=== PATIENT | female | born 1945 | race American Indian/Alaskan Native ===

== ENCOUNTER 2018-08-25 22:48 | Inpatient (IN) | payer MEDICAID, MEDICARE ==
[2018-08-25 23:57] LABS: Basophils # (Auto) 0.1 K/mm3 (0.0-0.1); Basophils % (Auto) 0.5 % (0.0-1.8); Eosinophils % (Auto) 0.2 % (0.0-4.3); Hematocrit 36.5 % (30.3-42.9); Hemoglobin 12.3 gm/dl (10.1-14.3); Lymphocytes # (Auto) 3.2 K/mm3 (1.2-5.4); Lymphocytes % (Auto) 27.3 % (13.4-35.0); Mean Corpuscular HGB Conc 34 % (30-34); Mean Corpuscular Volume 88 fl (79-97); Monocytes % (Auto) 8.5 % (0.0-7.3); Platelet Count 296 K/mm3 (140-440); Red Blood Count 4.16 M/mm3 (3.65-5.03); Red Cell Distribution Width 16.2 % (13.2-15.2)
[2018-08-26 00:13] LABS: Alanine Aminotransferase 20 units/L (7-56); BUN/Creatinine Ratio 10; Blood Urea Nitrogen 6 mg/dL (7-17); Calcium 9.2 mg/dL (8.4-10.2); Hemolysis Index 9
--- NOTE | 2018-08-26 00:21 | XRay Report ---
PROCEDURE: XR CHEST 1V AP TECHNIQUE: Chest radiograph single view. HISTORY: cough COMPARISONS: None . FINDINGS: Heart: Normal. Mediastinum/Vessels: Normal. Lungs/Pleural space: Normal. Bony thorax: No acute osseous abnormality. Life support devices: None. IMPRESSION: No acute cardiopulmonary abnormality. This document is electronically signed by Rian Dumont MD., August 26 2018 12:19:42 AM ET
[2018-08-26 00:26] LABS: INR 1.31 (0.87-1.13)
[2018-08-26 00:27] LABS: Partial Thromboplastin Time 31.4 Sec. (24.2-36.6)
--- NOTE | 2018-08-26 00:54 | Cat Scan Report ---
PROCEDURE: CT HEAD/BRAIN WO CON TECHNIQUE: Computerized tomography of the head was performed without contrast material. CT DOSE LENGTH PRODUCT: 1038.3 mGycm HISTORY: convulsions COMPARISONS: None . FINDINGS: Skull and scalp: Normal . Paranasal sinuses: Normal . Ventricles and subarachnoid spaces: Normal . Cerebrum: No evidence of hemorrhage, acute infarction or mass. Mild atrophy and periventricular deep white matter change. Cerebellum and brainstem: No evidence of hemorrhage, acute infarction or mass . Vasculature: Normal . Other: None . ASPECTS: 10 IMPRESSION: There is no evidence of an acute intracranial process. There is mild atrophy and periven tricular deep white matter change . This document is electronically signed by Mona Mejia DO., August 26 2018 12:52:31 AM ET
--- NOTE | 2018-08-26 01:41 | Emergency Department Report ---
ED General Adult HPI - General Chief complaint: Neuro Symptoms/Deficit Stated complaint: MUSCLE SPASMS Time Seen by Provider: 08/25/18 23:10 Source: EMS Mode of arrival: Wheelchair Limitations: Physical Limitation - History of Present Illness Initial comments: Patient presents to the emergency department from a local senior care for stroke and worsening of right sided weakness. The patient has a previous history of CVA in the senior care states that she was having difficulty moving her right side more normal and slurred speech. Onset of symptoms are unknown. The senior care also states that the patient is twitching more than normal -: Sudden Consistency: constant Improves with: none Worsens with: none Treatments Prior to Arrival: none - Related Data Allergies Allergy/AdvReac Type Severity Reaction Status Date / Time Penicillins Allergy Unknown Verified 08/25/18 22:57 ED Review of Systems ROS: Stated complaint: MUSCLE SPASMS Other details as noted in HPI Comment: not able to assess due to the patient's condition ED Past Medical Hx - Past Medical History Previous Medical History?: Yes Hx CVA: Yes (right deficit) Hx Diabetes: Yes Hx GERD: Yes Hx Seizures: Yes Hx Psychiatric Treatment: Yes (Schizoaffective disorder) Hx Dementia: Yes Additional medical history: dysphagia, Abnormal giat, Cerebral Embolism, Afib, hyperlipidemia, osteoarthritis of knee - Surgical History Past Surgical History?: No Additional Surgical History: Elbow repair over 30 years. mass removed from back of the neck early - Social History Smoking Status: Former Smoker ED Physical Exam - General Limitations: Physical Limitation General appearance: alert, in no apparent distress, other (patient is having involuntary tremors of the right side) - Head Head exam: Present: atraumatic, normocephalic - Eye Eye exam: Present: normal appearance, PERRL, EOMI - ENT ENT exam: Present: mucous membranes moist - Neck Neck exam: Present: normal inspection - Respiratory Respiratory exam: Present: normal lung sounds bilaterally. Absent: respiratory distress, wheezes, rales, rhonchi - Cardiovascular Cardiovascular Exam: Present: regular rate, normal rhythm. Absent: systolic murmur, diastolic murmur, rubs, gallop - GI/Abdominal GI/Abdominal exam: Present: soft, normal bowel sounds. 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 Absent: motor sensory deficit - Psychiatric Psychiatric exam: Present: normal affect, normal mood - Skin Skin exam: Present: warm, dry, intact, normal color. Absent: rash ED Course Vital Signs 08/25/18 08/25/18 22:59 23:31 Temperature 99.0 F Pulse Rate 134 H Respiratory 32 H Rate Blood Pressure 179/90 [Left] O2 Sat by Pulse 99 Oximetry ED Medical Decision Making - Lab Data Result diagrams: 08/25/18 23:42 08/25/18 23:42 Lab Results 08/25/18 08/25/18 08/25/18 Range/Units 23:42 23:42 23:42 WBC 11.9 H (4.5-11.0) K/mm3 RBC 4.16 (3.65-5.03) M/mm3 Hgb 12.3 (10.1-14.3) gm/dl Hct 36.5 (30.3-42.9) % MCV 88 (79-97) fl MCH 30 (28-32) pg MCHC 34 (30-34) % RDW 16.2 H (13.2-15.2) % Plt Count 296 (140-440) K/mm3 Lymph % (Auto) 27.3 (13.4-35.0) % [place] % (Auto) 8.5 H (0.0-7.3) % Eos % (Auto) 0.2 (0.0-4.3) % Baso % (Auto) 0.5 (0.0-1.8) % Lymph # 3.2 (1.2-5.4) K/mm3 [place] # 1.0 H (0.0-0.8) K/mm3 Eos # 0.0 (0.0-0.4) K/mm3 Baso # 0.1 (0.0-0.1) K/mm3 Seg Neutrophils % 63.5 (40.0-70.0) % Seg Neutrophils # 7.5 (1.8-7.7) K/mm3 PT 17.1 H (12.2-14.9) Sec. INR 1.31 H (0.87-1.13) APTT 31.4 (24.2-36.6) Sec. Sodium 141 (137-145) mmol/L Potassium 3.8 (3.6-5.0) mmol/L Chloride 103.7 (98-107) mmol/L Carbon Dioxide 22 (22-30) mmol/L Anion Gap 19 mmol/L BUN 6 L (7-17) mg/dL Creatinine 0.6 L (0.7-1.2) mg/dL Estimated GFR > 60 ml/min BUN/Creatinine Ratio 10 % Glucose 158 H (65-100) mg/dL Calcium 9.2 (8.4-10.2) mg/dL Total Bilirubin 0.30 (0.1-1.2) mg/dL AST 17 (5-40) units/L ALT 20 (7-56) units/L Alkaline Phosphatase 58 (35-129) units/L Total Protein 7.5 (6.3-8.2) g/dL Albumin 3.0 L (3.9-5) g/dL Albumin/Globulin Ratio 0.7 % - Radiology Data Radiology results: report reviewed [facility] [address] [place] [address] Cat Scan Report Signed Patient: RENUKA OBANDO MR#: [id number] : 1945 Acct:[id number] Age/Sex: 73 / F ADM Date: 08/25/18 Loc: ED Attending Dr: Ordering Physician: GABBY CHEEMA MD Date of Service: 08/25/18 Procedure(s): CT head/brain wo con Accession Number(s): [id number] cc: GABBY CHEEMA MD PROCEDURE: CT HEAD/BRAIN WO CON TECHNIQUE: Computerized tomography of the head was performed without contrast material. CT DOSE LENGTH PRODUCT: 1038.3 mGycm HISTORY: convulsions COMPARISONS: None . FINDINGS: Skull and scalp: Normal . Paranasal sinuses: Normal . Ventricles and subarachnoid spaces: Normal . Cerebrum: No evidence of hemorrhage, acute infarction or mass. Mild atrophy and periventricular deep white matter change. Cerebellum and brainstem: No evidence of hemorrhage, acute infarction or mass . Vasculature: Normal . Other: None . ASPECTS: 10 IMPRESSION: There is no evidence of an acute intracranial process. There is mild atrophy and periventricular deep white matter change . This document is electronically signed by Mona Mejia DO., August 26 2018 12:52:31 AM ET Transcribed By: [facility] Dictated By: MONA MEJIA MD Electronically Authenticated By: MONA MEJIA MD Signed Date/Time: 08/26/18 0054 DD/ TD/TT: 08/26/186 [facility] [address] [place] [address] XRay Report Signed Patient: RENUKA OBANDO MR#: [id number] : 1945 Acct:[id number] Age/Sex: 73 / F ADM Date: 08/25/18 Loc: ED Attending Dr: Ordering Physician: GABBY CHEEMA MD Date of Service: 08/25/18 Procedure(s): XR chest 1V ap Accession Number(s): [id number] cc: GABBY CHEEMA MD Fluoro Time In Minutes: PROCEDURE: XR CHEST 1V AP TECHNIQUE: Chest radiograph single view. HISTORY: cough COMPARISONS: None . FINDINGS: Heart: Normal. Mediastinum/Vessels: Normal. Lungs/Pleural space: Normal. Bony thorax: No acute osseous abnormality. Life support devices: None. IMPRESSION: No acute cardiopulmonary abnormality. This document is electronically signed by Rian Eduardo MD., August 26 2018 12:19:42 AM ET Transcribed By: [place] Dictated By: RIAN EDUARDO MD Electronically Authenticated By: RIAN EDUARDO MD Signed Date/Time: 08/26/18 0021 DD/ 0005 TD/TT: 08/26/18 0005 - Medical Decision Making Results discussed with patient Tremors greatly improved The patient's aphasia improved as well and her right-sided weakness also improve Critical care attestation.: If time is entered above; I have spent that time in minutes in the direct care of this critically ill patient, excluding procedure time. ED Disposition Clinical Impression: Aphasia Disposition: DC-09 OP ADMIT IP TO THIS HOSP Is pt being admited?: Yes Does the pt Need Aspirin: No Condition: Fair Referrals: PRIMARY CARE, [Primary Care Provider] - 3-5 Days - Assessment Assessment Interval: Baseline - Level of Consciousness 1a. Level of Consciousness: alert/keenly responsive - LOC Questions 1b. LOC Questions: dysarthric/intubated - LOC Command 1c. LOC Commands: performs tasks correctly - Best Gaze 2. Best Gaze: normal - Visual 3. Visual: no visual loss - Facial Palsy 4. Facial Palsy: partial paralysis - Motor Arm 5a. Motor Arm Left: no drift 5b. Motor Arm Right: some gravity effort - Motor Leg 6a. Motor Leg Left: no drift 6b. Motor Leg Right: no drift - Limb Ataxia 7. Limb Ataxia: absent - Sensory 8. Sensory: normal - Best Language 9. Best Language: mild/moderate aphasia - Dysarthria 10. Dysarthria: mild/moderate dysarthria - Extinction and Inattention 11. Extinction/Inattention: no abnormality - Scoring Total Score: 7 Stroke Severity: Moderate Stroke
[2018-08-26] MEDS ORDERED: BABY ASPIRIN PO ONE (01:51)
[2018-08-26] MEDS ORDERED: SODIUM CHLORIDE FLUSH SYRINGE 10 ML IV PRN (02:34)
[2018-08-26] MEDS ORDERED: ZOFRAN IV PRN (02:34)
--- NOTE | 2018-08-26 02:47 | History and Physical Report ---
History of Present Illness Date of examination: 08/26/18 History of present illness: 73-year-old woman with a history of CVA complicated by dysphagia, right-sided weakness, diabetes, GERD, seizure, A. fib, hyperlipidemia, schizoaffective disorder was sent from the detention to the emergency room for evaluation of worsening right sided weakness and slurred speech. Per the emergency room physician, her speech improved in the emergency room Review of systems Constitutional: no weight loss, chills, fever Ears, eyes, nose, mouth and throat: no nasal congestion, no nasal discharge, no sinus pressure, no vision change, no red eye. Neck: No neck pain or rigidity. Cardiovascular: no palpitations, chest pain Respiratory: no cough, shortness of breath Gastrointestinal: no hematochezia, abdominal pain Genitourinary : no frequency , no hematuria Musculoskeletal: no joint swelling or muscle ache Integumentary: no rash, no pruritis Neurological: no parathesias, + focal weakness Endocrine: no cold or heat intolerance, no polyuria or polydipsia Hematologic/Lymphatic: no easy bruising, no easy bleeding, no gland swelling Allergic/Immunologic: no urticaria, no angioedema. PAST MEDICAL HISTORY:CVA complicated by dysphagia, right-sided weakness, diabetes, GERD, seizure, A. fib, hyperlipidemia PAST SURGICAL HISTORY: elbow, mass removed from the back of the neck SOCIAL HISTORY: Denies alcohol, drugs, tobacco FAMILY HISTORY: Hypertension Medications and Allergies Allergies Allergy/AdvReac Type Severity Reaction Status Date / Time Penicillins Allergy Unknown Verified 08/25/18 22:57 Exam - Physical Exam Narrative exam: General Apperance: The patient lying in bed, breathing comfortable HEENT: Normocephalic, atraumatic. Pupils equally round and reactive to light, EOMI, no sclericterus or JVD or thyromegaly or nodule. , no carotid bruit, muco us membranes moist, no exudate or erythema Heart: S1-S2, regular is rhythm Lungs: Clear to auscultation bilaterally, breathing comfortable Abdomen: Positive bowel sounds, soft, nontender, nondistended, no organomegaly Extremities: No edema cyanosis clubbing Skin: no rash, nodule, warm and dry Neuro: cranial nerves 2-12 intact, speech is fluent, right upper and lower extremity 3/ 5 - Constitutional Vitals: Temp Pulse Resp BP Pulse Ox 99.0 F 134 H 32 H 179/90 99 08/25/18 23:31 08/25/18 22:59 08/25/18 22:59 08/25/18 22:59 08/25/18 22:59 Results - Labs CBC & Chem 7: 08/25/18 23:42 08/25/18 23:42 Labs: Abnormal lab results 08/25/18 08/25/18 08/25/18 Range/Units 23:42 23:42 23:42 WBC 11.9 H (4.5-11.0) K/mm3 RDW 16.2 H (13.2-15.2) % [place] % (Auto) 8.5 H (0.0-7.3) % [place] # 1.0 H (0.0-0.8) K/mm3 PT 17.1 H (12.2-14.9) Sec. INR 1.31 H (0.87-1.13) BUN 6 L (7-17) mg/dL Creatinine 0.6 L (0.7-1.2) mg/dL Glucose 158 H (65-100) mg/dL Albumin 3.0 L (3.9-5) g/dL - Imaging and Cardiology Chest x-ray: report reviewed CT Scan - head: report reviewed Assessment and Plan Assessment Acute CVA diabetes GERD seizure A. fib hyperlipidemia chizoaffective disorder Plan Admit to medicine Obtain MRI, MRA of the head and neck, echo [facility]ary C[employer] Feeder neurology, speech, OT, PT Do neuro checks, swallows screen Start Plavix, statin, DVT prophylaxis
[2018-08-26 04:50] LABS: Amorphous Crystals,Urine 2+; Bacteria,Urine 1+ /HPF (Negative); Bilirubin,Urine NEG (Negative); Blood,Urine NEG (Negative); Color,Urine Yellow (Yellow); Protein,Urine <15 mg/dL mg/dL (Negative); Urobilinogen,Urine < 2.0 mg/dL (<2.0)
[2018-08-26] MEDS ORDERED: LOVENOX SUB-Q SCH (10:00)
--- NOTE | 2018-08-26 11:32 | Magnetic Resonance Report ---
MRA HEAD WITHOUT CONTRAST HISTORY: Stroke. [id number] imaging with MIP reformations of the teller of [place] is submitted. The arteries appear widely patent and free of hemodynamically significant stenosis, aneurysm or dissection. IMPRESSION: Unremarkable MRA head.
--- NOTE | 2018-08-26 11:32 | Magnetic Resonance Report ---
MRI OF THE BRAIN WITHOUT CONTRAST: HISTORY: Stroke PROCEDURE: Multiplanar, multisequence MR imaging of the brain without IV contrast was performed. FINDINGS: Compared to the CT head dated 08/26/18. There is mild motion artifact on all sequences. Moderate volume loss is evident. Otherwise, the brain parenchyma signal intensity at the leos-white interface is within normal limits on all sequences. No evidence for acute ischemia, hemorrhage or mass. No chronic infarct or extra-axial fluid collection. The midline structures are central. The basal cisterns are patent. Normal ventricular size. The orbital cavities and sella turcica demonstrate no abnormality. The visualized paranasal sinuses and mastoid air cells are well aerated. IMPRESSION: Volume loss. No acute intracranial process is identified.
--- NOTE | 2018-08-26 12:58 | Event Note ---
Date: 08/26/18 Patient was admitted earlier this morning closer management of suspected CVA, patient didn't know why she is here. The patient has chronic right-sided weakness, she has twitching of her right leg. CVA workup is in progress.
--- NOTE | 2018-08-26 13:02 | Progress Note ---
Subjective Date of service: 08/26/18 Interval history: have reviewed the MRA AND mra BOTH NORMAL PLAN CEHCK echo FOR TIA WORK UP WILL DETAIL NOTE AT THAT POINT THANKS Objective - Vital Sign Vital Signs - 12hr 08/26/18 08/26/18 08/26/18 01:15 01:46 02:15 Temperature Pulse Rate Respiratory Rate Blood Pressure 162/90 135/75 114/68 Blood Pressure [Left] O2 Sat by Pulse 97 95 94 Oximetry 08/26/18 08/26/18 08/26/18 02:45 03:15 03:30 Temperature Pulse Rate 94 H Respiratory 22 Rate Blood Pressure 126/67 127/67 147/81 Blood Pressure [Left] O2 Sat by Pulse 96 96 100 Oximetry 08/26/18 08/26/18 08/26/18 03:46 04:00 04:15 Temperature Pulse Rate 108 H 95 H 90 Respiratory 34 H 16 20 Rate Blood Pressure 147/81 143/83 133/80 Blood Pressure [Left] O2 Sat by Pulse 98 97 97 Oximetry 08/26/18 08/26/18 08/26/18 04:30 05:00 05:10 Temperature Pulse Rate 84 79 76 Respiratory 18 17 18 Rate Blood Pressure 124/72 114/68 114/68 Blood Pressure [Left] O2 Sat by Pulse 96 95 95 Oximetry 08/26/18 08/26/18 08/26/18 05:20 05:30 05:40 Temperature Pulse Rate 82 82 79 Respiratory 21 19 17 Rate Blood Pressure 122/74 117/71 117/71 Blood Pressure [Left] O2 Sat by Pulse 93 96 97 Oximetry 08/26/18 08/26/18 08/26/18 06:13 06:16 09:17 Temperature 98.5 F 98.1 F Pulse Rate 104 H 98 H 122 H Respiratory 19 20 Rate Blood Pressure 160/94 170/93 Blood Pressure [Left] O2 Sat by Pulse 97 96 Oximetry 08/26/18 08/26/18 11:02 12:39 Temperature 98.8 F Pulse Rate 117 H 126 H Respiratory 18 Rate Blood Pressure Blood Pressure 182/95 [Left] O2 Sat by Pulse 98 Oximetry - Laboratory Findings CBC and BMP: 08/25/18 23:42 08/25/18 23:42 Abnormal Lab Findings: Abnormal Labs 08/25/18 08/25/18 08/25/18 23:42 23:42 23:42 WBC 11.9 H RDW 16.2 H [place] % (Auto) 8.5 H [place] # 1.0 H PT 17.1 H INR 1.31 H BUN 6 L Creatinine 0.6 L Glucose 158 H Albumin 3.0 L Urine pH Urine WBC (Auto) 08/26/18 04:24 WBC RDW [place] % (Auto) [place] # PT INR BUN Creatinine Glucose Albumin Urine pH 8.0 H Urine WBC (Auto) 31.0 H
[2018-08-26] MEDS: PLAVIX PO SCH ×2 (13:12→13:14)
[2018-08-26] MEDS: LEVAQUIN 500MG/100ML 500 MG/100 ML BAG IV SCH (13:12)
[2018-08-26] MEDS: LOVENOX SUB-Q SCH (13:13)
[2018-08-26] MEDS: LOPRESSOR PO SCH (21:57)
[2018-08-26] MEDS ORDERED: PRAVACHOL PO SCH (22:00)
[2018-08-27] MEDS: TYLENOL PO PRN ×2 (03:35→12:16)
[2018-08-27 05:32] LABS: Basophils % (Auto) 0.3 % (0.0-1.8); Eosinophils % (Auto) 0.2 % (0.0-4.3); Hemoglobin 11.9 gm/dl (10.1-14.3); Lymphocytes # (Auto) 2.3 K/mm3 (1.2-5.4); Lymphocytes % (Auto) 19.9 % (13.4-35.0); Mean Corpuscular HGB Conc 33 % (30-34); Mean Corpuscular Volume 89 fl (79-97); Monocytes # (Auto) 0.9 K/mm3 (0.0-0.8); Monocytes % (Auto) 8.2 % (0.0-7.3); Platelet Count 239 K/mm3 (140-440); Red Blood Count 4.06 M/mm3 (3.65-5.03); Red Cell Distribution Width 16.4 % (13.2-15.2)
[2018-08-27 07:15] LABS: BUN/Creatinine Ratio 14; Blood Urea Nitrogen 7 mg/dL (7-17); Calcium 8.9 mg/dL (8.4-10.2); Chol/HDL Ratio 2.75 %; HDL Cholesterol 33 mg/dL (40-59); Hemolysis Index 5; LDL Cholesterol,Direct 47 mg/dL (50-130)
[2018-08-27] MEDS: LOPRESSOR PO SCH (09:11)
[2018-08-27] MEDS: LOVENOX SUB-Q SCH (09:12)
[2018-08-27] MEDS: LEVAQUIN 500MG/100ML 500 MG/100 ML BAG IV SCH (09:12)
[2018-08-27] MEDS: PLAVIX PO SCH (09:12)
--- NOTE | 2018-08-27 10:25 | Discharge Summary ---
Providers - Providers Date of Admission: 08/26/18 02:34 Attending physician: FAUSTO STUART MD 08/26/18 Consult to Physician [CONS] Routine Comment: Consulting Provider: MAICOL KAY Physician Instructions: Reason For Exam: cva 08/26/18 02:37 Occupational Therapy Evaluate and Treat [CONS] Routine Comment: Reason For Exam: Neuro deficits Physical Therapy Evaluation and Treat [CONS] Routine Comment: Reason For Exam: Neuro deficits 08/26/18 07:46 Speech Therapy Evaluation and Treat [CONS] Urgent Reason For Exam: swallow eval Primary care physician: INTERIOR DESIGN PROFESSIONAL Hospitalization Reason for admission: worsening of right-sided weakness and slurred speech Condition: Stable Pertinent studies: MRI head IMPRESSION: Volume loss. No acute intracranial process is identified. CT, echo, carotid Dopplers unremarkable Hospital course: 73-year-old woman with a history of CVA complicated by dysphagia, right-sided weakness, diabetes, GERD, seizure, A. fib, hyperlipidemia, schizoaffective disorder was sent from the residential to the emergency room for evaluation of worsening right sided weakness and slurred speech. Per the emergency room physician, her speech improved in the emergency room. Patient was admitted to the floor and CVA workup was done and negative for acute stroke. Per patient weakness and her speech is at her baseline. Patient has UTI and discharged on Levaquin. Patient from residential and discharged back there. I have called her daughter and discussed the management plan. Patient was hemodynamically stable as of discharge. Disposition: DC/[place]-03 SNF W [facility] CERT Time spent for discharge: 34 minutes - Discharge Diagnoses (1) UTI (urinary tract infection) Status: Acute (2) Aphasia Status: Acute Core Measure Documentation - Palliative Care Palliative Care/ Comfort Measures: Not Applicable - Core Measures Any of the following diagnoses?: none, history only (CVA) Exam - Physical Exam Narrative exam: Not in cardiopulmonary distress. The patient appeared well nourished and normally developed. Vital signs as documented. Head exam is unremarkable. No scleral icterus . Neck is without jugular venous distension, thyromegaly, or carotid bruits. Lungs are clear to auscultation. Cardiac exam reveals regular rate and Rhythm. First and second heart sounds normal. No murmurs, rubs or gallops. Abdominal exam reveals normal bowel sounds, no masses, no organomegaly and no aortic enlargement. Extremities are nonedematous and both femoral and pedal pulses are normal. OUTBOUND CALL CENTER REPRESENTATIVE: Chronic right-sided hemiparesis. - Constitutional Vitals: Temp Pulse Resp BP Pulse Ox 98.2 F 118 H 24 186/103 97 08/27/18 09:01 08/27/18 09:11 08/27/18 09:01 08/27/18 09:11 08/27/18 09:01 Plan Activity: advance as tolerated Weight Bearing Status: Weight Bear as Tolerated Diet: low salt Follow up with: PRIMARY CARE, [Primary Care Provider] - 3-5 Days Prescriptions: levoFLOXacin [Levaquin TAB] 500 mg PO QDAY #5 tablet
[2018-08-27 12:36] VITALS: BP 150/98
== END 2018-08-27 12:40 | DRG 690 ==
LOC: ED 22:48 → 4A 08-26 02:34
PROVIDERS: ADMIT Internal Medicine; ATTEND Internal Medicine
DX: N39.0 Urinary tract infection, site not specified (principal); R47.01 Aphasia; R65.10 Systemic inflammatory response syndrome (SIRS) of non-infectious origin without acute organ dysfunction; I69.351 Hemiplegia and hemiparesis following cerebral infarction affecting right dominant side; E11.9 Type 2 diabetes mellitus without complications; K21.9 Gastro-esophageal reflux disease without esophagitis; I48.91 Unspecified atrial fibrillation; R56.9 Unspecified convulsions; E78.5 Hyperlipidemia, unspecified; F03.90 Unspecified dementia, unspecified severity, without behavioral disturbance, psychotic disturbance, mood disturbance, and anxiety; M17.10 Unilateral primary osteoarthritis, unspecified knee; F25.9 Schizoaffective disorder, unspecified; Z82.49 Family history of ischemic heart disease and other diseases of the circulatory system; Z88.0 Allergy status to penicillin
CPT/HCPCS: 36415; 70450; 70544; 70551; 71045; 80048; 80053; 80061; 81001; 85025; 85610; 85730; 93306; 99285; G0378; A9270-GY; J1650; J1956